=== PATIENT | male | born 1990 | race African-American/Black ===

== ENCOUNTER 2018-05-10 08:44 | Emergency (ER) | payer OTHER ==
[2018-05-10 09:02] VITALS: BP 102/54; PULSE 77; TEMP 98; BMI 27.6
[2018-05-10] MEDS ORDERED: CYCLOBENZAPRINE HCL 10 MG TABLET (FP) ONE (09:40)
[2018-05-10] MEDS ORDERED: KETOROLAC TROMETHAMINE 60 MG/2 ML VIAL IM ONE (09:41)
[2018-05-10] MEDS ORDERED: CYCLOBENZAPRINE HCL 10 MG TABLET (FP) PO ONE (09:41)
[2018-05-10] MEDS ORDERED: KETOROLAC TROMETHAMINE 60 MG/2 ML VIAL ONE (09:42)
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
== END 2018-05-10 09:52 | disposition home or self-care (01) ==
LOC: JERFT 08:44
PROC: 3E0233Z Introduction of Anti-inflammatory into Muscle, Percutaneous Approach (ICD-10-PCS; principal; 2018-05-10)
DX: M62.830 Muscle spasm of back (principal); V43.62XA Car passenger injured in collision with other type car in traffic accident, initial encounter; Y92.488 Other paved roadways as the place of occurrence of the external cause; Y93.89 Activity, other specified; Y99.8 Other external cause status
CPT/HCPCS: 99281-25

== ENCOUNTER 2018-09-19 10:34 | Emergency (ER) | payer OTHER ==
[2018-09-19 10:41] VITALS: BP 121/67; PULSE 70; TEMP 98.2; BMI 26.9
[2018-09-19] MEDS ORDERED: IBUPROFEN 400 MG TABLET (FP) PO ONE ×2 (11:31→11:34)
[2018-09-19] MEDS ORDERED: LIDOCAINE 5% TOPICAL PATCH TP ONE (11:31)
[2018-09-19] MEDS ORDERED: CYCLOBENZAPRINE HCL 10 MG TABLET (FP) PO ONE (11:32)
[2018-09-19] MEDS ORDERED: CYCLOBENZAPRINE HCL 10 MG TABLET (FP) ONE (11:34)
[2018-09-19] MEDS ORDERED: LIDOCAINE 5% TOPICAL PATCH ONE (11:34)
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
[2018-09-19] MEDS ORDERED: LIDOCAINE PATCH REMOVAL MC SCH (22:00)
== END 2018-09-19 12:12 | disposition home or self-care (01) ==
LOC: JERFT 10:34
DX: M62.830 Muscle spasm of back (principal); V49.49XA Driver injured in collision with other motor vehicles in traffic accident, initial encounter; Y92.488 Other paved roadways as the place of occurrence of the external cause; Y93.89 Activity, other specified; Y99.8 Other external cause status
CPT/HCPCS: 99281-25

== ENCOUNTER 2019-07-28 18:03 | Emergency (ER) | payer OTHER ==
[2019-07-28] MEDS ORDERED: IBUPROFEN 600 MG TABLET (FP) PO ONE (19:00)
--- NOTE | 2019-07-28 19:00 | PDOC ---
Rapid Medical Evaluation Chief Complaint: Cold Symptoms Time Seen by Provider: 07/28/19 18:57 Medical Evaluation: Allergies Allergy/AdvReac Type Severity Reaction Status Date / Time No Known Allergies Allergy Verified 07/28/19 18:56 07/28/19 18:57 Pt c/o: uri s/s, fever Pt on brief exam: low grade t emp , tachy, appears flu-like Pt ordered for: motrin and flu Pt to proceed to the ED Discharge Disposition - Diagnosis Fever - Referrals - Patient Instructions - Post Discharge Activity
[2019-07-28 19:02] VITALS: BP 167/81; PULSE 101; TEMP 100.1; BMI 25.7
--- NOTE | 2019-07-28 19:23 | PDOC ---
History of Present Illness - General Chief Complaint: Cold Symptoms Stated Complaint: FLU LIKE SMPTOMS Time Seen by Provider: 07/28/19 18:57 - History of Present Illness Initial Comments: 07/28/19 19:19 29-year-old male without comorbidities presents for flulike symptoms x2 days Past History - Past Medical History Allergies/Adverse Reactions: Allergies Allergy/AdvReac Type Severity Reaction Status Date / Time No Known Allergies Allergy Verified 07/28/19 18:56 Home Medications: Ambulatory Orders Cyclobenzaprine HCl [Flexeril -] 10 mg PO HS #10 tablet 09/19/18 Ibuprofen 800 mg PO TID #30 tablet 09/19/18 Oseltamivir Phosphate [Tamiflu] 75 mg PO BID #10 capsule 07/28/19 COPD: No - Immunization History Immunization Up to Date: Yes - Psycho Social/Smoking Cessation Hx Smoking History: Never smoked Have you smoked in the past 12 months: No Information on smoking cessation initiated: No Hx Alcohol Use: No Drug/Substance Use Hx: No Substance Use Type: None Review of Systems - Review of Systems Constitutional: Yes: Chills, Fever, Malaise, Night Sweats HEENTM: Yes: Nose Congestion Respiratory: Yes: Cough *Physical Exam - Vital Signs Last Vital Signs Temp Pulse Resp BP Pulse Ox 100.1 F H 101 H 17 167/81 100 07/28/19 18:56 07/28/19 18:56 07/28/19 18:56 07/28/19 18:56 07/28/19 18:56 - Physical Exam 07/28/19 19:22 GENERAL: The patient is awake, alert, and fully oriented, in no acute distress. HEAD: Normal with no signs of trauma. EYES: sclera anicteric, conjunctiva clear. ENT: Ears normal tympanic membranes normal oropharynx clear uvula midline NECK: Normal range of motion LUNGS: Breath sounds equal, clear to auscultation bilaterally. No wheezes, and no crackles. HEART: S1 and S2 without murmur, rub or gallop. ABDOMEN: Soft, nontender, normoactive bowel sounds. No guarding, no rebound. No masses. EXTREMITIES: Normal range of motion, no edema. No clubbing or cyanosis. No cords, erythema, or tenderness. NEUROLOGICAL: Cranial nerves II through XII grossly intact. Normal speech, normal gait. PSYCH: Normal mood, normal affect. SKIN: Warm, Dry, normal turgor, no rashes or lesions noted. Medical Decision Making - Medical Decision Making 07/28/19 19:22 Presumptive treatment for influenza based on sick contacts Discharge - Discharge Information Problems reviewed: Yes Clinical Impression/Diagnosis: Fever, Influenza Condition: Stable Disposition: HOME - Admission No - Additional Discharge Information Prescriptions: Oseltamivir Phosphate [Tamiflu] 75 mg PO BID #10 capsule - Follow up/Referral Referrals: Clemencia Stanford MD [Staff Physician] - - Patient Discharge Instructions Additional Instructions: Tylenol and Motrin for fevers and body aches. Please take the Tamiflu as directed return to the emergency room for worsening symptoms and without fail follow-up with your primary care physician in 1 to 2 days for further evaluation and treatment options. - Post Discharge Activity Work/Back to School Note: Back to Work
== END 2019-07-28 19:38 | disposition home or self-care (01) ==
LOC: JERFT 18:03
DX: J11.1 Influenza due to unidentified influenza virus with other respiratory manifestations (principal)
CPT/HCPCS: 99281-25

== ENCOUNTER 2022-02-13 13:38 | Emergency (ER) | payer OTHER ==
[2022-02-13 14:10] VITALS: BP 112/76; PULSE 90; RESP 20; TEMP 97.8; BMI 24.3
[2022-02-13] MEDS ORDERED: CLINDAMYCIN HCL 300 MG CAPSULE PO ONE (15:14)
[2022-02-13] MEDS ORDERED: IBUPROFEN 600 MG TABLET (FP) PO ONE ×2 (15:15→15:21)
[2022-02-13] MEDS ORDERED: CLINDAMYCIN HCL 150 MG CAPSULE (FP) ONE (15:21)
== END 2022-02-13 16:47 | disposition home or self-care (01) ==
LOC: JER 13:38
DX: S81.801A Unspecified open wound, right lower leg, initial encounter (principal); L03.115 Cellulitis of right lower limb; W01.0XXA Fall on same level from slipping, tripping and stumbling without subsequent striking against object, initial encounter
CPT/HCPCS: 73590-TC-RT-FY; 99285-25

== ENCOUNTER 2022-02-21 17:55 | Emergency (ER) | payer OTHER ==
[2022-02-21 18:23] VITALS: BP 116/70; PULSE 84; RESP 18; TEMP 97; BMI 24.3
== END 2022-02-21 19:03 | disposition home or self-care (01) ==
LOC: JER 17:55 → JERFT 17:55
DX: S81.801A Unspecified open wound, right lower leg, initial encounter (principal)
CPT/HCPCS: 99283-25